=== PATIENT | female | born 1935 | race Caucasian/White ===

== ENCOUNTER 2018-01-02 08:25 | Inpatient (IN) | payer OTHER, BC ==
--- NOTE | 2018-01-02 08:33 | PDOC ---
History of Present Illness - General Stated Complaint: NECK AND SHOULDER PAIN Time Seen by Provider: 01/02/18 08:33 - History of Present Illness Initial Comments: 01/02/18 08:42 Ms. King is an 82 yo female w/ pmh of HTN, HLD, DM, Sciatica, Diverticulosis, and Rheumatoid Arthritis who presents for evaluation of back pain since this morning. She reports this started at 2am when she got up to use the bathroom and has persisted since. Ms. King localizes the pain to primarily her right neck/shoulder and says she has never had pain like this before. It is "25/10," and is exacerbated by movement. The patient denies chest pain, shortness of breath, headache and dizziness. Denies fever, chills, nausea, vomit, diarrhea and constipation. Denies dysuria, frequency, urgency and hematuria. Allergies: Penicillin, Aspirin Past History - Past Medical History Allergies/Adverse Reactions: Allergies Allergy/AdvReac Type Severity Reaction Status Date / Time Penicillins Allergy Verified 01/02/18 08:31 aspirin AdvReac UPSET Verified 01/02/18 08:31 STOMACH Home Medications: Ambulatory Orders Diltiazem HCl [Diltiazem ER] 180 mg PO DAILY 05/29/13 Glucosa Melendez 2Kcl/Chondroitin Melendez [Glucosamine & Chondroitin Cap] 2 each PO DAILY 05/29/13 Hydrochlorothiazide [Hctz -] 12.5 mg PO DAILY 05/29/13 Lovastatin 20 mg PO HS 05/29/13 Omeprazole [Prilosec (RX)] 20 mg PO DAILY 05/29/13 Ranitidine HCl [Zantac] 150 mg PO HS 05/29/13 Acetaminophen [Tylenol .Regular Strength -] 650 mg PO Q4H PRN #0 tablet Ascorbic Acid [Vitamin C -] 500 mg PO DAILY #0 tablet 06/03/13 Aspirin Coated [Ecotrin -] 325 mg PO DAILY #0 tablet.dr 06/03/13 Atorvastatin Ca [Lipitor] 10 mg PO HS #0 tablet 06/03/13 Calcium Carbonate/Vitamin D3 [Caltrate 600 + D Tablet] 1 each PO DAILY #0 tablet 06/03/13 Diltiazem Cd [Cardizem Cd -] 180 mg PO DAILY #0 cap.cd.24h 06/03/13 Ferrous Sulfate [Feosol] 325 mg PO TID PRN #0 ud 06/03/13 Magnesium Hydroxide [Milk of Magnesia -] 30 ml PO BID #0 ml 06/03/13 Oxycodone HCl/Acetaminophen [Percocet 5-325 mg Tablet] 1 combo PO Q4H PRN #0 tablet 06/03/13 Pantoprazole Sodium [Protonix -] 40 mg PO BID #0 tablet.ec 06/03/13 Ranitidine [Zantac -] 150 mg PO HS #0 tablet 06/03/13 Sennosides/Docusate Sodium [Pericolace -] 2 each PO HS #0 tablet 06/03/13 Simethicone [Mylicon -] 80 mg PO TID #0 tab.chew 06/03/13 Valsartan [Diovan] 40 mg PO Q2D #0 tablet 06/03/13 Cyclobenzaprine HCl 5 mg PO TID PRN #10 tablet 01/02/18 Diazepam [Valium] 5 mg PO Q8H PRN #12 tablet MDD 3 tabs 01/02/18 Anemia: No Asthma: No Cancer: No Cardiac Disorders: No CVA: No COPD: No CHF: No Dementia: No Diabetes: No GI Disorders: Yes (ACID REFLUX,BARRETTS ESOPHAGUS) Disorders: No HTN: Yes Hypercholesterolemia: Yes Liver Disease: No Seizures: No Thyroid Disease: No - Surgical History Abdominal Surgery: No Appendectomy: No Cardiac Surgery: No Cholecystectomy: No Lung Surgery: No Neurologic Surgery: No Orthopedic Surgery: Yes (RIGHT KNEE REPLACEMENT,FX RIGHT ELBOW) - Suicide/Smoking/Psychosocial Hx Smoking History: Never smoked Hx Alcohol Use: No Drug/Substance Use Hx: No Substance Use Type: None Hx Substance Use Treatment: No Review of Systems - Review of Systems Comments:: 01/02/18 08:50 GENERAL/CONSTITUTIONAL: No fever or chills. No weakness. HEAD, EYES, EARS, NOSE AND THROAT: No change in vision. No ear pain or discharge. No sore throat. CARDIOVASCULAR: No chest pain or shortness of breath RESPIRATORY: No cough, wheezing, or hemoptysis. GASTROINTESTINAL: No nausea, vomiting, diarrhea or constipation. GENITOURINARY: No dysuria, frequency, or change in urination. MUSCULOSKELETAL: +Neck/Shoulder/Back pain as described. SKIN: No rash NEUROLOGIC: No headache, vertigo, loss of consciousness, or change in strength/ sensation. ENDOCRINE: No increased thirst. No abnormal weight change HEMATOLOGIC/LYMPHATIC: No anemia, easy bleeding, or history of blood clots. ALLERGIC/IMMUNOLOGIC: No hives or skin allergy. *Physical Exam - Physical Exam Comments: 01/02/18 08:50 GENERAL: Awake, alert, and fully oriented, in no acute distress HEAD: No signs of trauma, normocephalic, atraumatic EYES: PERRLA, EOMI, sclera anicteric, conjunctiva clear ENT: Auricles normal inspection, hearing grossly normal, nares patent, oropharynx clear without exudates. Moist mucosa NECK: Normal ROM, supple, no lymphadenopathy, JVD, or masses LUNGS: No distress, speaks full sentences, clear to auscultation bilaterally HEART: Regular rate and rhythm, normal S1 and S2, no murmurs, rubs or gallops, peripheral pulses normal and equal bilaterally. ABDOMEN: Soft, nontender, normoactive bowel sounds. No guarding, no rebound. No masses EXTREMITIES: +Patient acutely tender to right neck/shoulder. Pain to lower left back with Normal inspection, Normal range of motion, no edema. No clubbing or cyanosis. NEUROLOGICAL: Cranial nerves II through XII grossly intact. Normal speech, normal gait, no focal sensorimotor deficits SKIN: Warm, Dry, normal turgor, no rashes or lesions noted. ED Treatment Course - LABORATORY CBC & Chemistry Diagram: 01/02/18 11:00 01/02/18 11:00 Medical Decision Making - Medical Decision Making 01/02/18 10:18 Ms. King is an 82 yo female w/ pmh as described who presents for evaluation of back/neck pain. CTA ordered to r/o dissection, valium given for symptomatic treatment. Flexeril 5mg added for increased efficacy. 01/02/18 15:13 CVA negative for acute process however 50-70% left internal carotid artery stenosis noted. Patient made aware and told to f/u with PCP for further evaluation of this problem. Patient reporting generalized relief from symptoms however symptoms increased when patient attempted to stand to leave. Additional 15mg toradol given for increased relief. Flexeril Rx sent to pt's pharmacy as well. Patient will follow-up with PCP for back pain as well this week. 01/02/18 17:11 Patient noted to have new left base density on CXR. CT sent for evaluation which revealed mild elevation of the left hemidiaphragm with overyling compressive atelectasis. No concern for acute process at this time. Discharging patient to home. *DC/Admit/Observation/Transfer Diagnosis at time of Disposition: Muscle spasm - Discharge Dispostion Disposition: HOME Decision to Admit order: Yes - Prescriptions - Referrals - Patient Instructions - Post Discharge Activity
[2018-01-02 08:42] VITALS: BMI 35.2
[2018-01-02] MEDS ORDERED: ACETAMINOPHEN 1000 MG/100 ML VIAL (NON FORMULARY) IVPB ONE ×2 (08:54→09:35)
[2018-01-02] MEDS ORDERED: ACETAMINOPHEN INJECTION 100 ML IVPB ONE (09:15)
[2018-01-02] MEDS ORDERED: diazePAM 5 MG TABLET PO ONE (09:55)
--- NOTE | 2018-01-02 10:18 | PDOC ---
Attending Attestation - Resident Resident Name: El Chan - ED Attending Attestation I have performed the following: I have examined & evaluated the patient, The case was reviewed & discussed with the resident, I agree w/resident's findings & plan, Exceptions are as noted - HPI HPI: 01/02/18 10:13 "The patient is a 82 year old female with a history of hypertension, hyperlipidemia, rheumatoid arthritis and sciatica, who presents to the emergency department with, 7 hours of neck pain. She reports the pain is localized to her right shoulder and neck. She first noticed the pain when she woke up at around 2am to go to the bathroom. Pt states the pain is worse with movement of her head. Denies any chest pain. Denies headache. Denies weakness/ numbness/tingling in her arms or legs. Denies incontinence. Pt denies any recent injury. Allergies: Pencillins and Aspirin. Social history: Nonsmoker. Denies EtOH use and recreational drug use. " - Physicial Exam PE: 01/02/18 10:18 "GENERAL: Awake, alert, and fully oriented, in no acute distress. HEAD: No signs of trauma EYES: PERRLA, EOMI, sclera anicteric, conjunctiva clear ENT: Auricles normal inspection, hearing grossly normal, nares patent, oropharynx clear without exudates. Moist mucosa NECK: + palpable tender knot in lateral R trapezius, no bruits, ROM limited 2/2 pain, No midline tenderness, no stepoffs, supple, no lymphadenopathy, JVD, or masses LUNGS: Breath sounds equal, clear to auscultation bilaterally. No wheezes, and no crackles HEART: Regular rate and rhythm, normal S1 and S2, no murmurs, rubs or gallops ABDOMEN: Soft, nontender, normoactive bowel sounds. No guarding, no rebound. No masses EXTREMITIES: Normal range of motion, no edema. No clubbing or cyanosis. No cords, erythema, or tenderness NEUROLOGICAL: Cranial nerves II through XII intact. 5/5 strength and sensation in all extremities, Normal speech, normal gait, normal cerebellar function SKIN: Warm, Dry, normal turgor, no rashes or lesions noted. " - Medical Decision Making 01/02/18 10:22 82 F with atraumatic R sided neck pain. Exam with palpable tender knot. Likely muscle spasm/torticollis. Pt has h/o RA but no evidence of cervical subluxation , no neuro deficits. Will r/o dissection with CTA. - Labs, coags - CTA neck - analgesia, valium 01/02/18 12:08 Labs wnl, XR shows LLL density. Pt without any cough/chest pain/SOB or clinical signs of PNA. 01/02/18 14:55 CTA with no evidence of dissection. Pt informed of 50-70% L ICA stenosis. She understands need to f/u with PMD for doppler imaging. Pt reassessed - now with significant improvement in pain and ROM of neck after muscle relaxant. However, upon ambulation, pt began to complain of L upper back pain. Given XR finding of LLL density, will order chest CT at this time to further evaluate. 01/02/18 17:[address] shows atelectasis of LLL, no consolidation or mass. Otherwise unremarkable CT. Pt is well appearing, with normal vitals. Clinically stable for DC at this time. I discussed the physical exam findings, ancillary test results and final diagnoses with the patient. I answered all of the patient's questions. The patient was satisfied with the care received and felt comfortable with the discharge plan and treatment plan. The patient agrees to follow up with the primary care physician within 24-72 hours.
[2018-01-02] MEDS ORDERED: diazePAM 5 MG TABLET ONE (10:53)
[2018-01-02 11:13] LABS: BASO % 0.4 % (0-2.0); EOS % 0.1 % (0-4.5); HEMATOCRIT 39.4 % (32.4-45.2); HEMOGLOBIN 13.7 GM/dL (10.7-15.3); MCH 30.5 pg (25.7-33.7); MCHC 34.8 g/dl (32.0-36.0); MEAN CELL VOLUME 87.5 fl (80-96); MEAN PLT VOLUME 7.4 fl (7.5-11.1); MONO % 5.9 % (3.8-10.2); NEUT % 82.6 % (42.8-82.8); PLATELET COUNT 242 K/MM3 (134-434); RBC 4.51 M/mm3 (3.60-5.2); RDW 13.3 % (11.6-15.6); WHITE BLOOD COUNT 9.6 K/mm3 (4.0-10.0)
[2018-01-02 11:19] LABS: INR 1.06 (0.82-1.09)
[2018-01-02 11:22] LABS: ACTIVATED PTT 32.6 SECONDS (26.9-34.4)
[2018-01-02 11:34] LABS: ALBUMIN 3.2 g/dl (3.4-5.0); ALK PHOS 100 U/L (45-117); ANION GAP 5 (8-16); BILIRUBIN,TOTAL 0.6 mg/dL (0.2-1.0); BLOOD UREA NITROGEN 17 mg/dL (7-18); CALCIUM 8.6 mg/dL (8.5-10.1); CHLORIDE 103 mmol/L (98-107); CO2 30 mmol/L (21-32); CREATININE 0.7 mg/dL (0.55-1.02); GLUCOSE,RANDOM 101 mg/dL (74-106); POTASSIUM 3.8 mmol/L (3.5-5.1); SGOT/AST 9 U/L (15-37); SGPT/ALT 14 U/L (12-78); SODIUM 138 mmol/L (136-145); TOT PROT 6.9 g/dl (6.4-8.2)
[2018-01-02] MEDS ORDERED: CYCLOBENZAPRINE HCL 5 MG TABLET PO ONE (12:28)
[2018-01-02] MEDS ORDERED: CYCLOBENZAPRINE HCL 10 MG TABLET (FP) ONE (13:21)
[2018-01-02] MEDS ORDERED: KETOROLAC TROMETHAMINE 15 MG/ML VIAL IVPUSH ONE (15:10)
[2018-01-02] MEDS ORDERED: KETOROLAC TROMETHAMINE 15 MG/ML VIAL ONE (15:50)
[2018-01-02 16:00] VITALS: BP 120/52; PULSE 87; TEMP 97.8
--- NOTE | 2018-01-02 17:15 | HP ---
CHIEF COMPLAINT: PCP: HISTORY OF PRESENT ILLNESS: ER course was notable for: (1) (2) (3) Recent Travel: PAST MEDICAL HISTORY: PAST SURGICAL HISTORY: Social History: Smoking: Alcohol: Drugs: Family History: Allergies Penicillins Allergy (Verified 01/02/18 08:31) aspirin Adverse Reaction (Verified 01/02/18 08:31) UPSET STOMACH HOME MEDICATIONS: Home Medications Medication Instructions Recorded Diltiazem HCl [Diltiazem ER] 180 mg PO DAILY 05/29/13 Glucosa Melendez 2Kcl/Chondroitin Melendez 2 each PO DAILY 05/29/13 [Glucosamine & Chondroitin Cap] Hydrochlorothiazide [Hctz -] 12.5 mg PO DAILY 05/29/13 Lovastatin 20 mg PO HS 05/29/13 Omeprazole [Prilosec (RX)] 20 mg PO DAILY 05/29/13 Ranitidine HCl [Zantac] 150 mg PO HS 05/29/13 Acetaminophen [Tylenol .Regular 650 mg PO Q4H PRN #0 tablet 06/03/13 Strength -] Ascorbic Acid [Vitamin C -] 500 mg PO DAILY #0 tablet 06/03/13 Aspirin Coated [Ecotrin -] 325 mg PO DAILY #0 tablet.dr 06/03/13 Atorvastatin Ca [Lipitor] 10 mg PO HS #0 tablet 06/03/13 Calcium Carbonate/Vitamin D3 1 each PO DAILY #0 tablet 06/03/13 [Caltrate 600 + D Tablet] Diltiazem Cd [Cardizem Cd -] 180 mg PO DAILY #0 cap.cd.24h 06/03/13 Ferrous Sulfate [Feosol] 325 mg PO TID PRN #0 ud 06/03/13 Magnesium Hydroxide [Milk of 30 ml PO BID #0 ml 06/03/13 Magnesia -] Oxycodone HCl/Acetaminophen 1 combo PO Q4H PRN #0 tablet 06/03/13 [Percocet 5-325 mg Tablet] Pantoprazole Sodium [Protonix -] 40 mg PO BID #0 tablet.ec 06/03/13 Ranitidine [Zantac -] 150 mg PO HS #0 tablet 06/03/13 Sennosides/Docusate Sodium 2 each PO HS #0 tablet 06/03/13 [Pericolace -] Simethicone [Mylicon -] 80 mg PO TID #0 tab.chew 06/03/13 Valsartan [Diovan] 40 mg PO Q2D #0 tablet 06/03/13 Cyclobenzaprine HCl 5 mg PO TID PRN #10 tablet 01/02/18 Diazepam [Valium] 5 mg PO Q8H PRN #12 tablet MDD 3 01/02/18 tabs REVIEW OF SYSTEMS CONSTITUTIONAL: Absent: fever, chills, diaphoresis, generalized weakness, malaise, loss of appetite, weight change HEENT: Absent: rhinorrhea, nasal congestion, throat pain, throat swelling, difficulty swallowing, mouth swelling, ear pain, eye pain, visual changes CARDIOVASCULAR: Absent: chest pain, syncope, palpitations, irregular heart rate, lightheadedness , peripheral edema RESPIRATORY: Absent: cough, shortness of breath, dyspnea with exertion, orthopnea, wheezing, stridor, hemoptysis GASTROINTESTINAL: Absent: abdominal pain, abdominal distension, nausea, vomiting, diarrhea, constipation, melena, hematochezia GENITOURINARY: Absent: dysuria, frequency, urgency, hesitancy, hematuria, flank pain, genital pain MUSCULOSKELETAL: Absent: myalgia, arthralgia, joint swelling, back pain, neck pain SKIN: Absent: rash, itching, pallor HEMATOLOGIC/IMMUNOLOGIC: Absent: easy bleeding, easy bruising, lymphadenopathy, frequent infections ENDOCRINE: Absent: unexplained weight gain, unexplained weight loss, heat intolerance, cold intolerance NEUROLOGIC: Absent: headache, focal weakness or paresthesias, dizziness, unsteady gait, seizure, mental status changes, bladder or bowel incontinence PSYCHIATRIC: Absent: anxiety, depression, suicidal or homicidal ideation, hallucinations. PHYSICAL EXAMINATION Vital Signs - 24 hr 01/02/18 01/02/18 08:31 15:57 Temperature 98.0 F 97.8 F Pulse Rate 85 Pulse Rate [ 87 Right] Respiratory 18 18 Rate Blood Pressure 155/66 Blood Pressure 120/52 [Left Arm] O2 Sat by Pulse 100 96 Oximetry (%) GENERAL: Awake, alert, and fully oriented, in no acute distress. HEAD: Normal with no signs of trauma. EYES: Pupils equal, round and reactive to light, extraocular movements intact, sclera anicteric, conjunctiva clear. No lid lag. EARS, NOSE, THROAT: Ears normal, nares patent, oropharynx clear without exudates. Moist mucous membranes. NECK: Normal range of motion, supple without lymphadenopathy, JVD, or masses. LUNGS: Breath sounds equal, clear to auscultation bilaterally. No wheezes, and no crackles. No accessory muscle use. HEART: Regular rate and rhythm, normal S1 and S2 without murmur, rub or gallop. ABDOMEN: Soft, nontender, not distended, normoactive bowel sounds, no guarding, no rebound, no masses. No hepatomegaly or splenomegaly. MUSCULOSKELETAL: Normal range of motion at all joints. No bony deformities or tenderness. No CVA tenderness. UPPER EXTREMITIES: 2+ pulses, warm, well-perfused. No cyanosis. No clubbing. No peripheral edema. LOWER EXTREMITIES: 2+ pulses, warm, well-perfused. No calf tenderness. No peripheral edema. NEUROLOGICAL: Cranial nerves II-XII intact. Normal speech. Normal gait. PSYCHIATRIC: Cooperative. Good eye contact. Appropriate mood and affect. SKIN: Warm, dry, normal turgor, no rashes or lesions noted, normal capillary refill. Laboratory Results - last 24 hr 01/02/18 01/02/18 01/02/18 11:00 11:00 11:00 WBC 9.6 RBC 4.51 D Hgb 13.7 D Hct 39.4 D MCV 87.5 MCH 30.5 MCHC 34.8 RDW 13.3 Plt Count 242 D MPV 7.4 L Neutrophils % 82.6 Lymphocytes % 11.0 Monocytes % 5.9 Eosinophils % 0.1 Basophils % 0.4 PT with INR 12.00 INR 1.06 PTT (Actin FS) 32.6 Sodium 138 Potassium 3.8 Chloride 103 Carbon Dioxide 30 Anion Gap 5 L BUN 17 Creatinine 0.7 Creat Clearance w eGFR > 60 Random Glucose 101 Calcium 8.6 Total Bilirubin 0.6 AST 9 L ALT 14 Alkaline Phosphatase 100 Total Protein 6.9 Albumin 3.2 L ASSESSMENT/PLAN: Hospitalist Screening - Colonoscopy Questionnaire Colonoscopy Questionnaire: Colonoscopy Questionnaire
== END 2018-01-02 17:17 | disposition home or self-care (01) | DRG 552 ==
LOC: JER 08:25 → JERBED 15:49
PROVIDERS: ADMIT Internal Medicine; ATTEND Internal Medicine
DX: M62.830 Muscle spasm of back (principal); J98.11 Atelectasis; I10 Essential (primary) hypertension; E78.5 Hyperlipidemia, unspecified; M54.30 Sciatica, unspecified side; E11.9 Type 2 diabetes mellitus without complications; M06.9 Rheumatoid arthritis, unspecified; K57.30 Diverticulosis of large intestine without perforation or abscess without bleeding; Z96.651 Presence of right artificial knee joint; I65.22 Occlusion and stenosis of left carotid artery
CPT/HCPCS: 36415; 70498-TC; 71045-TC-FY; 71250-TC; 80053; 85025; 85610; 85730; 99285-25; J0131

== ENCOUNTER 2020-12-05 18:44 | Emergency (ER) | payer OTHER, BC ==
[2020-12-06 11:08] LABS: SARS-CoV-2 NAA Not Detected (Not Detected)
== END 2020-12-05 18:51 | disposition home or self-care (01) ==
LOC: JVIRT 18:44
DX: Z11.52 Encounter for screening for COVID-19 (principal)
CPT/HCPCS: C9803; G2251-GT; U0003; U0005

== ENCOUNTER 2022-06-01 12:40 | Emergency (ER) | payer OTHER, BC ==
[2022-06-01 13:28] VITALS: PULSE 105; BMI 34.3
[2022-06-01 13:42] LABS: BASO % 0.2 % (0-2.0); HEMATOCRIT 35.9 % (32.4-45.2); HEMOGLOBIN 11.9 GM/dL (10.7-15.3); LYMPH % 14.3 % (8-40); MCH 29.4 pg (25.7-33.7); MCHC 33.2 g/dl (32.0-36.0); MEAN CELL VOLUME 88.5 fl (80-96); MEAN PLT VOLUME 7.9 fl (7.5-11.1); MONO % 7.1 % (3.8-10.2); NEUT % 78.4 % (42.8-82.8); PLATELET COUNT 194 10^3/uL (134-434); RBC 4.06 M/mm3 (3.60-5.2); RDW 14.2 % (11.6-15.6); WHITE BLOOD COUNT 9.8 K/mm3 (4.0-10.0)
[2022-06-01 13:48] LABS: INR 1.15 (0.83-1.09); PROTHROMBIN TIME (PATIENT) 13.2 SEC (9.7-13.0)
[2022-06-01 13:51] LABS: ACTIVATED PTT 28.6 SECONDS (25.2-36.5)
[2022-06-01 13:59] LABS: CHLORIDE 96 mmol/L (98-107); SODIUM 131 mmol/L (136-145)
[2022-06-01 14:02] LABS: ALBUMIN 2.8 g/dl (3.4-5.0); ANION GAP 12 MMOL/L (8-16); BLOOD UREA NITROGEN 25.8 mg/dL (7-18); CO2 23 mmol/L (21-32); GLUCOSE,RANDOM 123 mg/dL (74-106)
[2022-06-01 14:05] LABS: CREATININE 1.2 mg/dL (0.55-1.3)
[2022-06-01] MEDS ORDERED: SODIUM CHLORIDE 0.9% 500 ML INFUS.BAG IV ONE (14:05)
[2022-06-01 14:06] LABS: BILIRUBIN,TOTAL 0.6 mg/dL (0.2-1); SGOT/AST 37 U/L (15-37); SGPT/ALT 37 U/L (13-61)
[2022-06-01 14:07] LABS: TOT PROT 6.6 g/dl (6.4-8.2)
[2022-06-01 14:08] LABS: ALK PHOS 138 U/L (45-117)
[2022-06-01] MEDS ORDERED: HEPARIN NA (PORCINE) 5,000 UNITS/ML 1ML VIAL IVPUSH PRN ×4 (16:22→16:40)
[2022-06-01] MEDS ORDERED: HEPARIN NA (PORCINE) 5,000 UNITS/ML 1ML VIAL SQ ONE (16:22)
[2022-06-01] MEDS ORDERED: HEPARIN - 25,000 UNIT in SODIUM CHLORIDE 495 ML IV SCH ×2 (16:30→17:00)
[2022-06-01] MEDS ORDERED: HEPARIN NA (PORCINE) 5,000 UNITS/ML 1ML VIAL ONE (16:34)
[2022-06-01] MEDS ORDERED: HEPARIN INFUSION - 25,000 UNITS/500 ML INFUS.BAG IVPB ONE ×2 (16:34→16:39)
[2022-06-01] MEDS ORDERED: HEPARIN INFUSION - 25,000 UNITS/500 ML INFUS.BAG IVPB SCH (16:45)
[2022-06-01 18:31] VITALS: BP 177/82; RESP 20; TEMP 97.9
== END 2022-06-01 18:42 | disposition short-term general hospital (02) ==
LOC: JER 12:40
PROC: 3E033GC Introduction of Other Therapeutic Substance into Peripheral Vein, Percutaneous Approach (ICD-10-PCS; principal; 2022-06-01)
DX: I26.99 Other pulmonary embolism without acute cor pulmonale (principal)
CPT/HCPCS: 0241U-QW; 36415; 71045-TC-FY; 71275-TC; 80053; 84484; 85025; 85610; 85730; 86850; 86900; 86901; 93005; 93010; 99285-25; J1644; Q9967

== ENCOUNTER 2024-11-21 18:04 | Inpatient (IN) | payer OTHER, BC ==
[2024-11-21] MEDS ORDERED: KETOROLAC TROMETHAMINE 15 MG/ML VIAL ONE (19:03)
[2024-11-21] MEDS ORDERED: DEXAMETHASONE SOD PHOSPHATE 10 MG/1 ML VIAL ONE (19:03)
[2024-11-21] MEDS ORDERED: ACETAMINOPHEN INJECTION 100 ML ONE (19:03)
[2024-11-21] MEDS: DEXAMETHASONE SOD PHOSPHATE 10 MG/1 ML VIAL IVPUSH ONE (19:21)
[2024-11-21] MEDS: ACETAMINOPHEN 1000 MG/100 ML BAG IVPB ONE (19:21)
[2024-11-21] MEDS: KETOROLAC TROMETHAMINE 15 MG/ML VIAL IVPUSH ONE (19:21)
[2024-11-21 19:39] LABS: ABSOLUTE IMMATURE GRANULOCYTES 0.05 x10^3/uL (0.0-0.031); BASOPHILS # 0.03 x10^3/uL (0.01-0.08); HEMATOCRIT 38.9 % (34.1-44.9); HEMOGLOBIN 12.5 g/dL (11.2-15.7); MCHC 32.1 g/dl (32.2-35.5); MEAN CELL VOLUME 86.6 fl (79.4-94.8); MEAN PLT VOLUME 9.8 fl (9.4-12.3); MONOCYTE # 1.06 x10^3/uL (0.24-0.86); MONOCYTE % 9.3 % (4.7-12.5); PLATELET COUNT 211 x10^3/uL (182-369); RDW 13.5 % (12.5-17.0)
[2024-11-21 19:49] LABS: INR 1.62 (0.83-1.09); PROTHROMBIN TIME (PATIENT) 17.8 SEC (9.7-13.0)
[2024-11-21 19:52] LABS: ACTIVATED PTT 37.1 SECONDS (25.2-36.5)
[2024-11-21 20:02] LABS: POTASSIUM 3.9 mmol/L (3.5-5.1)
[2024-11-21 20:04] LABS: ALBUMIN 3.2 g/dl (3.4-5.0); BLOOD UREA NITROGEN 23.1 mg/dL (7-18); CALCIUM 9.1 mg/dL (8.5-10.1)
[2024-11-21 20:09] LABS: BILIRUBIN,TOTAL 0.7 mg/dL (0.2-1); TOT PROT 6.8 g/dl (6.4-8.2)
[2024-11-22] MEDS ORDERED: DEXTROSE 50%-WATER 25 GM/50 ML DISP.SYRIN ONE (00:19)
[2024-11-22] MEDS: diazePAM 5 MG TABLET PO ONE ×2 (00:58→18:58)
[2024-11-22 01:22] VITALS: BMI 33.1
[2024-11-22] MEDS: KETOROLAC TROMETHAMINE 15 MG/ML VIAL IVPUSH ONE (01:23)
[2024-11-22] MEDS: DEXAMETHASONE SOD PHOSPHATE 4 MG/1 ML VIAL IVPUSH SCH (02:37)
[2024-11-22] MEDS ORDERED: ACETAMINOPHEN 1000 MG/100 ML BAG IVPB PRN (06:00)
[2024-11-22] MEDS ORDERED: KETOROLAC TROMETHAMINE 15 MG/ML VIAL IVPUSH PRN (06:00)
[2024-11-22 08:34] LABS: HEMOGLOBIN 12.7 g/dL (11.2-15.7); MCHC 31.8 g/dl (32.2-35.5); MEAN CELL VOLUME 86.2 fl (79.4-94.8); MEAN PLT VOLUME 10.4 fl (9.4-12.3); PLATELET COUNT 214 x10^3/uL (182-369); RDW 13.4 % (12.5-17.0)
[2024-11-22 08:50] LABS: POTASSIUM 3.8 mmol/L (3.5-5.1)
[2024-11-22] MEDS: GABAPENTIN 100 MG CAPSULE PO SCH (09:06)
[2024-11-22] MEDS: ACETAMINOPHEN 500 MG TABLET (FP) PO SCH (09:06)
[2024-11-22 09:09] LABS: BLOOD UREA NITROGEN 25.3 mg/dL (7-18)
[2024-11-22] MEDS: HYDROCHLOROTHIAZIDE 12.5 MG CAPSULE (FP) PO SCH (09:10)
[2024-11-22] MEDS: PANTOPRAZOLE 40 MG TABLET PO SCH (09:10)
[2024-11-22] MEDS: LIDOCAINE 5% TOPICAL PATCH TP SCH (09:10)
[2024-11-22] MEDS: APIXABAN 5 MG TABLET PO SCH (09:10)
[2024-11-22 09:11] LABS: TOT PROT 7.1 g/dl (6.4-8.2)
[2024-11-22 09:16] LABS: BILIRUBIN,TOTAL 0.6 mg/dL (0.2-1)
[2024-11-22 09:56] LABS: EPI CELLS 21 /uL (0-25.1); HYALINE CASTS 1 /uL (0-3.1); PH,URINE 5.5 (5.0-8.0); URINE APPEARANCE CLEAR; URINE BACTERIA 941 /uL (0-1359); URINE BILIRUBIN NEGATIVE (NEGATIVE); URINE COLOR YELLOW; URINE GLUCOSE (UA) NEGATIVE (NEGATIVE); URINE KETONE NEGATIVE (NEGATIVE); URINE LEUK ESTERASE 2+ (NEGATIVE); URINE NITRITE NEGATIVE (NEGATIVE); URINE PROTEIN TRACE (NEGATIVE); URINE RBC 44 /uL (0-23.9); URINE UROBILINOGEN 0.2 mg/dL (0.2-1.0); URINE WBC 242 /uL (0-25.8)
[2024-11-22] MEDS: OXYBUTYNIN CHLORIDE 5 MG TABLET PO SCH (13:26)
[2024-11-22] MEDS: LIDOCAINE PATCH REMOVAL MC SCH (21:14)
[2024-11-22] MEDS: ROSUVASTATIN CA 10 MG TABLET PO SCH (21:14)
[2024-11-23 07:55] LABS: POTASSIUM 3.7 mmol/L (3.5-5.1)
[2024-11-23 07:58] LABS: ALBUMIN 2.6 g/dl (3.4-5.0); BLOOD UREA NITROGEN 33.5 mg/dL (7-18); CALCIUM 8.5 mg/dL (8.5-10.1)
[2024-11-23 08:01] LABS: CREATININE 1.1 mg/dL (0.55-1.3)
[2024-11-23 08:03] LABS: BILIRUBIN,TOTAL 0.3 mg/dL (0.2-1); TOT PROT 6.5 g/dl (6.4-8.2)
[2024-11-23 08:07] LABS: ABSOLUTE IMMATURE GRANULOCYTES 0.04 x10^3/uL (0.0-0.031); BASOPHILS # 0.01 x10^3/uL (0.01-0.08); HEMATOCRIT 37.1 % (34.1-44.9); HEMOGLOBIN 11.9 g/dL (11.2-15.7); MCHC 32.1 g/dl (32.2-35.5); MEAN CELL VOLUME 86.3 fl (79.4-94.8); MEAN PLT VOLUME 10.2 fl (9.4-12.3); MONOCYTE # 0.48 x10^3/uL (0.24-0.86); MONOCYTE % 4.7 % (4.7-12.5); PLATELET COUNT 219 x10^3/uL (182-369); RDW 13.2 % (12.5-17.0)
[2024-11-23] MEDS: DEXAMETHASONE SOD PHOSPHATE 4 MG/1 ML VIAL IVPUSH SCH (17:40)
[2024-11-24] MEDS: DEXAMETHASONE 4 MG TABLET (FP) PO SCH (09:26)
[2024-11-24 21:49] VITALS: PULSE 69; RESP 18
[2024-11-25 06:31] VITALS: BP 148/65; TEMP 97.5
[2024-11-25] MEDS ORDERED: DOCUSATE SODIUM 100 MG CAPSULE (FP) PO PRN (09:21)
== END 2024-11-25 11:54 | DRG 552 ==
LOC: JER 18:04 → JERBED 21:17 → J8W 23:56 → OBSVTOIN 11-22 13:31
PROVIDERS: ADMIT Internal Medicine; ATTEND Nurse Practitioner Family
DX: M48.061 Spinal stenosis, lumbar region without neurogenic claudication (principal); I10 Essential (primary) hypertension; E78.5 Hyperlipidemia, unspecified; M54.31 Sciatica, right side; K21.9 Gastro-esophageal reflux disease without esophagitis; N39.498 Other specified urinary incontinence; E66.811 Obesity, class 1; G47.33 Obstructive sleep apnea (adult) (pediatric); Z68.33 Body mass index [BMI] 33.0-33.9, adult; M06.9 Rheumatoid arthritis, unspecified; K59.00 Constipation, unspecified
CPT/HCPCS: 36415; 72131-TC; 72148-TC; 80053; 81003; 83735; 85025; 85027; 85610; 85730; 87086; 87635; 93005; 93010; 97116-GP; 97161-GP; 99285-25; G0378; J0131; J1100

== ENCOUNTER 2025-01-06 12:14 | Emergency (ER) | payer OTHER, BC ==
[2025-01-06 12:25] VITALS: BMI 35.4
[2025-01-06] MEDS ORDERED: ACETAMINOPHEN 325 MG TABLET (FP) ONE (13:27)
[2025-01-06] MEDS: ACETAMINOPHEN 325 MG TABLET (FP) PO ONE (13:32)
[2025-01-06 13:34] LABS: ABSOLUTE IMMATURE GRANULOCYTES 0.12 x10^3/uL (0.0-0.031); BASOPHILS # 0.05 x10^3/uL (0.01-0.08); EOSINOPHIL % 0.1 % (0.7-5.8); EOSINOPHILS # 0.02 x10^3/uL (0.04-0.36); HEMATOCRIT 33.3 % (34.1-44.9); HEMOGLOBIN 10.8 g/dL (11.2-15.7); MCHC 32.4 g/dl (32.2-35.5); MEAN CELL VOLUME 85.4 fl (79.4-94.8); MEAN PLT VOLUME 9.4 fl (9.4-12.3); MONOCYTE # 1.24 x10^3/uL (0.24-0.86); MONOCYTE % 8.6 % (4.7-12.5); PLATELET COUNT 323 x10^3/uL (182-369); RDW 15.4 % (12.5-17.0)
[2025-01-06 14:03] LABS: POTASSIUM 3.6 mmol/L (3.5-5.1)
[2025-01-06 14:05] LABS: BLOOD UREA NITROGEN 21.4 mg/dL (7-18); CALCIUM 9.3 mg/dL (8.5-10.1)
[2025-01-06 14:09] LABS: ERYTHROCYTE SEDIMENTATION RATE 101 mm/hr (0-30)
[2025-01-06 14:10] LABS: BILIRUBIN,TOTAL 0.7 mg/dL (0.2-1); TOT PROT 6.5 g/dl (6.4-8.2)
[2025-01-06 14:19] LABS: ALBUMIN 2.5 g/dl (3.4-5.0)
[2025-01-06] MEDS ORDERED: DALBAVANCIN HCL 500 MG VIAL (RESTRICTED TO ID ONLY) IVPB ONE (15:15)
[2025-01-06] MEDS: DALBAVANCIN HCL 1,500 MG in DEXTROSE 5%-WATER - 500 ML IVPB ONE (15:34)
[2025-01-06 16:59] VITALS: BP 118/45; PULSE 69; RESP 18; TEMP 98
[2025-01-06 19:17] LABS: HCV DIAGNOSTIC IN-HOUSE W/RFLX NON-REACTIVE (NONREACTIVE); HIV INTERPRETATION NEGATIVE (NEGATIVE)
== END 2025-01-06 17:01 | disposition home or self-care (01) ==
LOC: JER 12:14
DX: L03.113 Cellulitis of right upper limb (principal); M18.11 Unilateral primary osteoarthritis of first carpometacarpal joint, right hand; M79.641 Pain in right hand
CPT/HCPCS: 36415; 73110-TC-RT-FY; 73130-TC-RT-FY; 80053; 85025; 85651; 86140; 86803; 87389; 99284-25; J0875